=== PATIENT | male | born 1965 | race Caucasian/White ===

== ENCOUNTER → 2018-01-05 | Outpatient (CLI) | payer OTHER ==
[2018-01-05 11:26] VITALS: BMI 29.2
== END | disposition home or self-care (01) ==
LOC: MNTWWP 11:02
PROVIDERS: ATTEND Family Medicine
DX: R14.0 Abdominal distension (gaseous) (principal)
CPT/HCPCS: 97802

== ENCOUNTER → 2018-09-01 | Outpatient (CLI) | payer BC ==
--- NOTE | 2018-09-01 22:44 | MR ---
EXAMINATION TYPE: MR lumbar spine wo con DATE OF EXAM: 09/01/2018 COMPARISON: NONE HISTORY: LBP down lt side/back of left leg x 11 months, spondylosis with myelopathy per order TECHNIQUE: Multiplanar, multisequence imaging of the lumbar spine is performed without IV contrast. FINDINGS: Sagittal images of the lumbar spine show vertebral body height to appear satisfactory. Alig nment is straightened. There is disc desiccation with moderate disc space narrowing L2-L3 level. Ther e is disc desiccation with moderate to advanced disc space narrowing and vacuum disc phenomenon L4-L5 level. There is disc desiccation with advanced disc space narrowing and heterogeneous Modic type II endplate changes at L5-S1 level. Mild to moderate anterior spurring L2-L3 and L4-L5 levels is present . Posterior disc herniations are seen at these levels effacing the anterior thecal sac. The conus me dullaris is normal in position and signal ending at mid-L1 level. Axial images show the T12-L1 and L1-L2 levels both to appear within normal limits. Axial images at the L2-L3 level shows mild to moderate broad disc bulge mildly effacing the anterior thecal sac and causing mild to moderate left greater than right bilateral neural foraminal narrowing. Axial images at the L3-L4 levels and mild facet degenerative changes bilaterally. There is mild broad disc bulge causing mild left greater than right bilateral anterior inferior neural foraminal narrowi ng. Axial images at the L4-L5 level shows mild facet degenerative changes bilaterally. There is broad-bas ed posterior spur disc complex mildly effaces the anterior thecal sac, there is yjgq-[id number]-whrarsch righ t-sided and mild left-sided anterior inferior neural foraminal narrowing. Axial images at the L5-S1 level show mild degenerative changes bilaterally. There is broad disc bulge seen minimally effacing anterior thecal sac, there is asymmetric moderate left and mild right-sided inferior neural foraminal narrowing noted. Encroachment near exiting left L5 nerve is felt present. No suspicious incidental retroperitoneal findings are seen. IMPRESSION: Straightening of lumbar spine with multilevel degenerative changes most prominent mid to lower lumbar levels as detailed above, encroachment near left L5 nerve is seen at L5-S1 level.
== END | disposition home or self-care (01) ==
LOC: RADMRIMAIN 19:44
PROVIDERS: ATTEND Family Medicine
DX: M47.16 Other spondylosis with myelopathy, lumbar region (principal)
CPT/HCPCS: 72148

== ENCOUNTER → 2020-02-16 | Outpatient (CLI) | payer BC ==
--- NOTE | 2020-02-16 09:40 | MR ---
EXAMINATION TYPE: MR lumbar spine wo con DATE OF EXAM: 02/16/2020 COMPARISON: MR lumbar spine 09/01/2018 HISTORY: Chronic LBP, injured 2017 TECHNIQUE: Multiplanar, multisequence images of the lumbar spine were acquired. Exam shows similar findings. There is loss of disc height and signal at intervertebral levels L2-3, L 4-5 and L5-S1 is multilevel spondylosis with endplate discogenic marrow signal change. Vacuum phenome non present at L4-5 and L5-S1. Lumbar vertebral bodies show preserved height and alignment, there is mild levoscoliosis centered at the lower lumbar spine. L1-L2: Normal disc appearance without desiccation. No herniation, protrusion or disc bulging. No ca nal stenosis is present. Foramina are patent bilaterally. L2-L3: Posterior broad-based disc bulge causes mild anterior mass effect on the thecal sac. Circumfer ential extension endplate disc complex encroaches somewhat on the neural foramen on the left. L3-L4: Hypertrophic changes at the facets causes minimal posterior lateral mass effect on the thecal sac greater on the left than on the right. No significant foraminal encroachment or spinal stenosis. L4-L5: Broad-based posterior disc bulge, endplate disc complex causes anterior mass effect on the the tommy sac. Hypertrophic changes of the facets, ligamentum flavum causes posterior lateral mass effect o n the thecal sac, there is a somewhat trefoil appearance of the thecal sac. Circumferential extension endplate disc complex encroaches somewhat on the right neural foramen likely contributed by the spin al curvature. L5-S1: There is an eccentric posterior disc bulge towards the left neural foramen, lateral extension endplate disc complex encroaches on the neural foramen greater on the left than on the right. Facet a rthropathy changes present. Some mild posterior lateral mass effect on the thecal sac. No significant spinal stenosis. Lumbar segments are intact. No paraspinal masses are identified. Conus medullaris has a normal appe arance. IMPRESSION: Degenerative disc disease, facet arthropathy, foraminal encroachment is similar to prior exam. No sig nificant central stenosis.
== END | disposition home or self-care (01) ==
LOC: RADMRIMAIN 08:44
PROVIDERS: ATTEND Family Medicine
DX: M51.36 Other intervertebral disc degeneration, lumbar region (principal); M47.896 Other spondylosis, lumbar region; M48.061 Spinal stenosis, lumbar region without neurogenic claudication
CPT/HCPCS: 72148

== ENCOUNTER 2020-09-03 08:32 | Day surgery (SDC) | payer BC ==
[2020-08-30 09:32] VITALS: BMI 29.9
[~2020-09-03 08:32] MED LIST: LACTATED RINGERS 1,000 ML IV SCH; LIDOCAINE 1% (10MG/ML) FOR IV START INTRADERMA PRN
[2020-09-03 09:00] VITALS: RESP 16; TEMP 97.8
[2020-09-03] MEDS ORDERED: fentaNYL (PF) 50 MCG/ML 2 ML AMP ONE (09:35)
[2020-09-03] MEDS ORDERED: PROPOFOL 10 MG/ML 20 ML VIAL IV ONE (09:35)
[2020-09-03] MEDS ORDERED: MIDAZOLAM 2 MG/2 ML VIAL ONE (09:35)
[2020-09-03] MEDS ORDERED: LIDOCAINE 1% INJ 10MG/ML (20 ML MDV) ONE (09:35)
--- NOTE | 2020-09-03 10:03 | P.PCN ---
Date of Procedure: 09/03/20 Description of Procedure: BRIEF HISTORY: Patient is a 55-year-old male presenting for esophagogastroduodenoscopy for evaluation of symptoms of burning epigastric pain, GERD and the sensation of food sitting on the stomach. Patient reports symptoms are triggered by certain foods such as steak or beer. PROCEDURE PERFORMED: Esophagogastroduodenoscopy with biopsy. PREOPERATIVE DIAGNOSIS: Burning epigastric pain, GERD.. ESTIMATED BLOOD LOSS: Minimal. IV sedation per anesthesia. PROCEDURE: After informed consent was obtained, the patient was brought into the endoscopy unit. IV sedation was administered by Anesthesia under continuous monitoring. Initially the Olympus GIF-190 video endoscope was inserted into the mouth. Esophagus intubated without any difficulty. It was gradually advanced into the stomach and duodenum and carefully examined. The bulb and the second part of the duodenum appeared normal, with biopsies taken to rule out celiac sprue. The scope at this time was withdrawn to the stomach, adequately insufflated with air, and upon careful examination, mucosa of the antrum, body, cardia and the fundus appeared normal, except for some mild punctate erythema in the antrum and body suggestive of mild gastritis with biopsies taken. The scope was then withdrawn into the esophagus. The GE junction was located at 41 cm from the incisors and biopsied. The esophagus appeared normal. There were no erosions or ulcerations seen and the patient tolerated the procedure well. IMPRESSION: 1. Mild gastritis. 2. Biopsies of the duodenum, body and GE junction. RECOMMENDATIONS: The findings of this examination were discussed with the patient and his family. Okay to resume diet. Okay to resume medications. Await pathology from biopsies. Patient may benefit from a trial of Prilosec OTC daily.
[2020-09-03 10:25] VITALS: BP 130/78; PULSE 68
== END 2020-09-03 11:02 | disposition home or self-care (01) ==
LOC: ORWHC2ENDO 08:32
PROVIDERS: ATTEND Internal Medicine
DX: K29.70 Gastritis, unspecified, without bleeding (principal); K21.9 Gastro-esophageal reflux disease without esophagitis; E78.5 Hyperlipidemia, unspecified; G47.33 Obstructive sleep apnea (adult) (pediatric); Z98.890 Other specified postprocedural states; Z79.1 Long term (current) use of non-steroidal anti-inflammatories (NSAID); Z79.899 Other long term (current) drug therapy
CPT/HCPCS: 88305; 43239; J2250; J2001; J3010; J2704

== ENCOUNTER → 2020-09-10 | Outpatient (CLI) | payer BC ==
--- NOTE | 2020-09-11 02:49 | MR ---
EXAMINATION TYPE: MR cervical spine wo con DATE OF EXAM: 09/10/2020 COMPARISON: None HISTORY: Headaches, neck pain, and arm numbness. Multiplanar multiecho imaging of the cervical spine was performed without contrast. Cervical vertebra have normal alignment. Cervical spinal cord has normal signal pattern. There is no edema. Brainstem is intact. There is mild disc space narrowing at C4-5 and C5-6. There is small poste rior disc bulge at C4-5 and C5-6 without impingement on the spinal canal. Spinal canal measures 8.5 m m at the narrowest point at C5-6. I see no bony destructive process. IMPRESSION: Spondylotic mild changes at C4-5 and C5-6. No spinal stenosis. Mild posterior disc bulging.
== END | disposition home or self-care (01) ==
LOC: RADMRIMAIN 19:26
PROVIDERS: ATTEND Family Medicine
DX: M50.221 Other cervical disc displacement at C4-C5 level (principal); M47.812 Spondylosis without myelopathy or radiculopathy, cervical region
CPT/HCPCS: 72141

== ENCOUNTER 2023-05-11 16:29 | Emergency (ER) | payer BC ==
--- NOTE | 2023-05-11 16:47 | ED ---
General Adult HPI - General Chief complaint: Fall Stated complaint: fell off horse Time Seen by Provider: 05/11/23 16:33 Source: patient, EMS, RN notes reviewed Mode of arrival: EMS Limitations: no limitations - History of Present Illness Initial comments: Patient is a pleasant 58-year-old male presenting to the emergency department with injury from horse. Incident occurred just prior to arrival. Patient states is worse was being bothered by flies. Patient was getting off a horse as a horse bucked back. Patient believes his forehead and the horse head struck. Patient believes he did lose consciousness for a minute or so. Patient also complains of some discomfort left upper arm and mild right groin. Patient believes he was stepped on the left upper arm. Patient is able to move his left upper arm with discomfort. No neck or back pain. No chest pain or dyspnea. No abdominal pain. - Related Data Home Medications Medication Instructions Recorded Confirmed Ibuprofen [Motrin Ib] 800 mg PO Q6H PRN 05/11/23 05/11/23 Previous Rx's Medication Instructions Recorded Ondansetron Odt [Zofran Odt] 4 mg PO Q8HR PRN #10 tab 05/11/23 Allergies Allergy/AdvReac Type Severity Reaction Status Date / Time No Known Allergies Allergy Verified 05/11/23 17:28 Review of Systems ROS Statement: Those systems with pertinent positive or pertinent negative responses have been documented in the HPI. ROS Other: All systems not noted in ROS Statement are negative. Constitutional: Denies: fever Eyes: Denies: eye pain ENT: Denies: ear pain Respiratory: Denies: cough Cardiovascular: Denies: chest pain Endocrine: Denies: fatigue Gastrointestinal: Denies: abdominal pain, vomiting Genitourinary: Denies: dysuria Musculoskeletal: Reports: as per HPI. Denies: back pain Neurological: Reports: as per HPI, headache. Denies: weakness, confusion Past Medical History Past Medical History: GERD/Reflux, Hyperlipidemia, Sleep Apnea/CPAP/BIPAP Additional Past Medical History / Comment(s): feels food gets stuck, "stomach won't take much", gets full feeling quickly with even water, hx migraines, hx "small ulcer", diverticulitis, constipation, states felt fever and congestion few days ago but now resolved. History of Any Multi-Drug Resistant Organisms: None Reported Additional Past Surgical History / Comment(s): surgery for fx colarbone with plate, Past Anesthesia/Blood Transfusion Reactions: No Reported Reaction Past Psychological History: No Psychological Hx Reported Smoking Status: Never smoker - Past Family History Father Family Medical History: Cancer Mother Family Medical History: Cancer Brother(s) Family Medical History: Cancer General Exam Limitations: no limitations General appearance: alert, in no apparent distress Head exam: Present: atraumatic, normocephalic Eye exam: Present: normal appearance, PERRL, EOMI ENT exam: Present: normal oropharynx, other (Mild bilateral TMJ region discomfort) Neck exam: Present: normal inspection. Absent: tenderness Respiratory exam: Present: normal lung sounds bilaterally Cardiovascular Exam: Present: regular rate, normal rhythm Expanded Peripheral pulses: 2+: Radial (R), Radial (L), Dorsalis Pedis (R), Dorsalis Pedis (L) GI/Abdominal exam: Present: soft. Absent: tenderness Extremities exam: Present: full ROM, tenderness (Moderate tenderness left proximal humerus. Minimal tenderness right diffuse femur. Distally extremity is neurovascular intact.) Back exam: Present: normal inspection. Absent: tenderness, vertebral tenderness Neurological exam: Present: alert, oriented X3, CN II-XII intact. Absent: motor sensory deficit Expanded Neurological exam: Present: protecting the airway Speech: Present: fluid speech Sensory exam: Upper Extremity Light Touch: Normal, Lower Extremity Light Touch: Normal Motor strength exam: RUE: 5, LUE: 5, RLE: 5, LLE: 5 Eye Response: (4) open spontaneously Motor Response: (6) obeys commands Verbal Response: (5) oriented Psychiatric exam: Present: normal affect, normal mood Skin exam: Present: normal color Course Vital Signs 05/11/23 05/11/23 16:36 17:43 Temperature 97.7 F Pulse Rate 90 81 Respiratory 19 18 Rate Blood Pressure 139/98 131/91 O2 Sat by Pulse 95 98 Oximetry EKG Findings - EKG Results: EKG: interpreted by ERMD (Left axis.), sinus rhythm, normal QRS, normal ST/T Medical Decision Making - Medical Decision Making Was pt. sent in by a medical professional or institution (, PA, RUMPER, urgent care, hospital, or [facility]...) When possible be specific @ -No Did you speak to anyone other than the patient for history (EMS, parent, family, police, friend...)? What history was obtained from this source @ -No Did you review nursing and triage notes (agree or disagree)? Why? @ -I reviewed and agree with nursing and triage notes Were old charts reviewed (outside hosp., previous admission, EMS record, old EKG, old radiological studies, urgent care reports/EKG's, [facility] records)? Report findings @ -No old charts were reviewed Differential Diagnosis (chest pain, altered mental status, abdominal pain women, abdominal pain men, vaginal bleeding, weakness, fever, dyspnea, syncope, headache, dizziness, GI bleed, back pain, seizure, CVA, palpatations, mental health, musculoskeletal)? @ -Differential Musculoskeletal Muscular strain, contusion, ligament sprain, fracture, arthritis, septic arthritis, bursitis, cellulitis, muscle spasm, nerve compression, DVT, arterial occlusion, herpes zoster, electrolyte abnormality, tumor.... This is not meant to be in all inclusive list EKG interpreted by me (3pts min.). @ - X-rays interpreted by me (1pt min.). @ -Left humerus x-ray, left shoulder x-ray, and right femur x-ray revealed no acute abnormality CT interpreted by me (1pt min.). @ -Reports reviewed U/S interpreted by me (1pt. min.). @ -None done What testing was considered but not performed or refused? (CT, X-rays, U/S, labs)? Why? @ -None What meds were considered but not given or refused? Why? @ -None Did you discuss the management of the patient with other professionals (professionals i.e. , PA, RUMPER, lab, RT, psych nurse, social scientist, crate repairer, teacher, college service officer, dependency case manager)? Give summary @ -No Was smoking cessation discussed for >3mins.? @ -No Was critical care preformed (if so, how long)? @ -No Were there social determinants of health that impacted care today? How? (Homelessness, low income, unemployed, alcoholism, drug addiction, transportation, low edu. Level, literacy, decrease access to med. care, senior living, rehab)? @ -No Was there de-escalation of care discussed even if they declined (Discuss DNR or withdrawal of care, Hospice)? DNR status @ -No What co-morbidities impacted this encounter? (DM, HTN, Smoking, COPD, CAD, Cancer, CVA, ARF, Chemo, Hep., AIDS, mental health diagnosis, sleep apnea, morbid obesity)? @ -None Was patient admitted / discharged? Hospital course, mention meds given and route, prescriptions, significant lab abnormalities, going to OR and other pertinent info. @ -Patient reevaluated and resting comfortably in bed. Symptoms have improved. Patient and family updated on results. Undiagnosed new problem with uncertain prognosis? @ -No Drug Therapy requiring intensive monitoring for toxicity (Heparin, Nitro, Insulin, Cardizem)? @ -No Were any procedures done? @ -No Diagnosis/symptom? @ -Concussion Acute, or Chronic, or Acute on Chronic? @ -Acute Uncomplicated (without systemic symptoms) or Complicated (systemic symptoms)? @ -default Side effects of treatment? @ -No Exacerbation, Progression, or Severe Exacerbation? @ -No Poses a threat to life or bodily function? How? (Chest pain, [place], [place], pneumonia, PE, COPD, DKA, ARF, appy, cholecystitis, CVA, Diverticulitis, Homicidal, Suicidal, threat to staff... and all critical care pts) @ -No - Lab Data Result diagrams: 05/11/23 18:17 05/11/23 19:00 Lab Results 05/11/23 05/11/23 05/11/23 Range/Units 18:17 19:00 19:00 WBC 8.1 (3.8-10.6) k/uL RBC 4.38 (4.30-5.90) m/uL Hgb 14.1 (13.0-17.5) gm/dL Hct 40.9 (39.0-53.0) % MCV 93.3 (80.0-100.0) fL MCH 32.1 (25.0-35.0) pg MCHC 34.4 (31.0-37.0) g/dL RDW 12.7 (11.5-15.5) % Plt Count 111 L (150-450) k/uL MPV 8.6 Neutrophils % 78 % Lymphocytes % 15 % Monocytes % 6 % Eosinophils % 1 % Basophils % 0 % Neutrophils # 6.4 (1.3-7.7) k/uL Lymphocytes # 1.2 (1.0-4.8) k/uL Monocytes # 0.5 (0-1.0) k/uL Eosinophils # 0.0 (0-0.7) k/uL Basophils # 0.0 (0-0.2) k/uL Sodium 137 (137-145) mmol/L Potassium 4.4 (3.5-5.1) mmol/L Chloride 104 (98-107) mmol/L Carbon Dioxide 27 (22-30) mmol/L Anion Gap 6 mmol/L BUN 20 (9-20) mg/dL Creatinine 1.07 (0.66-1.25) mg/dL Est GFR (CKD-EPI)AfAm 89 (>60 ml/min/1.73 sqM) Est GFR (CKD-EPI)NonAf 77 (>60 ml/min/1.73 sqM) Glucose 143 H (74-99) mg/dL Calcium 9.5 (8.4-10.2) mg/dL Total Bilirubin 0.7 (0.2-1.3) mg/dL AST 36 (17-59) U/L ALT 34 (4-49) U/L Alkaline Phosphatase 69 (38-126) U/L Total Protein 7.8 (6.3-8.2) g/dL Albumin 4.5 (3.5-5.0) g/dL Serum Alcohol <10 mg/dL Blood Type Recheck No Previous Record Bld Type Recheck Status CABO Indicated Spec Expiration Date 05/14/20232299 Disposition Clinical Impression: Concussion, Fall Disposition: HOME SELF-CARE Condition: Stable Instructions (If sedation given, give patient instructions): Concussion (ED) Additional Instructions: Please do follow-up to primary care physician in the next day or 2 for recheck. Please limit any activities with potential for injury, specifically head injury until released by Dr. Return for confusion, coordination palms, persistent vomiting, visual changes, worsening symptoms or any other concerns. Pressures are for nausea medicine has been sent to pharmacy. Prescriptions: Ondansetron Odt [Zofran Odt] 4 mg PO Q8HR PRN #10 tab PRN Reason: Nausea Is patient prescribed a controlled substance at d/c from ED?: No Referrals: Lionel Dhillon DO [Primary Care Provider] - 1-2 days Time of Disposition: 19:43
[2023-05-11] MEDS ORDERED: HYDROmorphone 1 MG/ML 1 ML SYRINGE IVP STA (17:59)
--- NOTE | 2023-05-11 18:23 | CT ---
EXAMINATION TYPE: CT facial bones wo con CT DLP: 1316.5 mGycm, Automated exposure control for dose reduction was used. DATE OF EXAM: 05/11/2023 5:51 PM COMPARISON: None. CLINICAL INDICATION:Male, 58 years old with history of trauma; [facility], pt fell off of horse. TECHNIQUE: Multiple unenhanced axial CT images were obtained of the facial bones soft tissue and bone windows. Coronal, axial and sagittal reformatted images were also provided in soft tissue and bone windows and submitted for interpretation. FINDINGS: There is no evidence of fracture, subluxation, dislocation, or significant soft tissue swelling. The orbital contents are unremarkable.The temporal-mandibular joints appear symmetric. The visualized por tion of the paranasal sinuses appear clear. Deviated to the left nasal bone and nasal bridge. IMPRESSION: Evidence of facial bone fracture.
[2023-05-11 18:26] LABS: Basophils % (A) 0 %; Eosinophils % (A) 1 %; HCT 40.9 % (39.0-53.0); HGB 14.1 gm/dL (13.0-17.5); Lymphocytes # (A) 1.2 k/uL (1.0-4.8); Lymphocytes % (A) 15 %; MCH 32.1 pg (25.0-35.0); MCHC 34.4 g/dL (31.0-37.0); MCV 93.3 fL (80.0-100.0); Mean Platelet Volume 8.6; Monocytes # (A) 0.5 k/uL (0-1.0); Monocytes % (A) 6 %; Neutrophils # (A) 6.4 k/uL (1.3-7.7); Neutrophils % (A) 78 %; Platelet Count 111 k/uL (150-450); RBC 4.38 m/uL (4.30-5.90); RDW 12.7 % (11.5-15.5); WBC 8.1 k/uL (3.8-10.6)
--- NOTE | 2023-05-11 18:27 | CT ---
EXAMINATION TYPE: CT brain cspine wo con CT DLP: 1316.5 mGycm, Automated exposure control for dose reduction was used. DATE OF EXAM: 05/11/2023 5:52 PM COMPARISON: None CLINICAL INDICATION:Male, 58 years old with history of trauma; pt fell off of horse. TECHNIQUE: Brain: Multiple axial CT images of the brain were obtained without IV contrast. Cspine: Axial CT images from the skull base to the inferior aspect of T2 we obtained without intraven ous contrast. Coronal and sagittal reformatted images were also reviewed. FINDINGS: Brain: Extra-axial spaces: No abnormal extra-axial fluid collections. Ventricular system: Within normal limits Cerebral parenchyma: No acute intraparenchymal hemorrhage or mass effect. The osborne-white junction is well differentiated. Cerebellum: Unremarkable. Mass effect: No evidence of midline shift. Intracranial vasculature: unremarkable Soft tissues: Normal. Calvarium/osseous structures: No depressed skull fracture. Paranasal sinuses and mastoid air cells: Clear. Visualized orbits: Orbital contents are intact. Cervical spine: Fracture: None. Fixation hardware involving the right clavicle appears intact. Osseous structures: Multilevel degenerative disc disease changes with endplate spurring and disc oste ophyte complex's. Vertebral alignment: Within normal limits. Spinal canal/Neural Foramina: No evidence of significant spinal canal narrowing. No evidence for sign ificant neural foraminal stenosis. Neck soft tissues: Prevertebral soft tissues are within normal limits. Other: The airway is patent. The lung apices are clear. Nuchal ligament consultations. IMPRESSION: 1. No acute intracranial process. 2. No evidence of cervical spine fracture. 3. Mild multilevel degenerative disc disease.
[2023-05-11] MEDS ORDERED: ONDANSETRON 4 MG/2 ML VIAL IVP STA (18:56)
--- NOTE | 2023-05-11 19:01 | XR ---
EXAMINATION TYPE: XR femur RT DATE OF EXAM: 05/11/2023 6:48 PM INDICATION: Patient age:Male; 58 years old; Reason for study: trauma; COMPARISON: None TECHNIQUE: The right femur was examined in Frontal and lateral projections. FINDINGS: Mild degeneration changes of the right hip with osteophyte formation and joint space narro wing. No evidence of acute osseous pathology, joint dislocation, or soft tissue swelling IMPRESSION: No acute osseous pathology. Mild right hip osteoarthrosis changes.
--- NOTE | 2023-05-11 19:04 | XR ---
EXAMINATION TYPE: XR shoulder complete LT DATE OF EXAM: 05/11/2023 6:49 PM INDICATION: Patient age:Male; 58 years old; Reason for study: trauma; COMPARISON: None TECHNIQUE: The left shoulder was examined in AP, internally rotated and scapular Y projections. FINDINGS: No evidence of acute osseous pathology, joint dislocation, or soft tissue swelling. The remaining por tions of the visualized chest are unremarkable. IMPRESSION: No acute osseous pathology.
--- NOTE | 2023-05-11 19:05 | XR ---
EXAMINATION TYPE: XR humerus LT DATE OF EXAM: 05/11/2023 6:51 PM INDICATION: Patient age:Male; 58 years old; Reason for study: trauma; [facility]. COMPARISON: None TECHNIQUE: The left humerus was examined in frontal and lateral projections. FINDINGS: No evidence of acute osseous pathology, joint dislocation, or soft tissue swelling. The rem aining portions of the visualized chest are unremarkable. IV cannula noted. IMPRESSION: No acute osseous pathology.
[2023-05-11 19:27] LABS: ALT 34 U/L (4-49); AST 36 U/L (17-59); African American GFR (CKD) 89 (>60 ml/min/1.73 sqM); Albumin 4.5 g/dL (3.5-5.0); Alcohol <10 mg/dL; Alkaline Phosphatase 69 U/L (38-126); Anion Gap 6 mmol/L; Blood Urea Nitrogen 20 mg/dL (9-20); Calcium 9.5 mg/dL (8.4-10.2); Carbon Dioxide 27 mmol/L (22-30); Chloride 104 mmol/L (98-107); Glucose 143 mg/dL (74-99); Non-African American GFR(CKD) 77 (>60 ml/min/1.73 sqM); Potassium 4.4 mmol/L (3.5-5.1); Sodium 137 mmol/L (137-145); Total Bilirubin 0.7 mg/dL (0.2-1.3); Total Protein 7.8 g/dL (6.3-8.2)
[2023-05-11] MEDS ORDERED: ONDANSETRON 4 MG ODT STARTER PACK 2 TAB BTL PO STA (19:44)
[2023-05-11 20:07] LABS: Prothrombin Time 10.4 sec (9.0-12.0)
[2023-05-11] MEDS ORDERED: traMADol 50 MG STARTER PACK 3 TAB BTL PO STA (20:13)
[2023-05-11 20:18] LABS: Partial Thromboplastin Time 20.7 sec (22.0-30.0)
[2023-05-11 20:43] VITALS: BP 131/92; PULSE 78; RESP 16; TEMP 98.2
== END 2023-05-11 20:20 | disposition home or self-care (01) ==
LOC: EC 16:29
DX: S06.0X1A Concussion with loss of consciousness of 30 minutes or less, initial encounter (principal); G47.30 Sleep apnea, unspecified; R40.2410 Glasgow coma scale score 13-15, unspecified time; V80.010A Animal-rider injured by fall from or being thrown from horse in noncollision accident, initial encounter; Y93.52 Activity, horseback riding
CPT/HCPCS: 93005; 86900; 86901; 80053; 85025; 85610; 85730; 86850; 80320; 73030; 73552; 73060; 72125; 70486; 70450; 99285; 96374; 96375; J2405; J1170; S0119; 36415